=== PATIENT | female | born 1950 | race Caucasian/White ===

== ENCOUNTER 2019-02-24 12:08 | Emergency (ER) | payer SELFPAY ==
[~2019-02-24] VITALS: Ht 160 cm; Wt 86.0 kg
[2019-02-24] MEDS ORDERED: KETOROLAC 30MG/ML VIAL IV STA (12:36)
[2019-02-24] MEDS ORDERED: SODIUM CHLORIDE 0.9% 1,000 ML IV ONE (12:36)
[2019-02-24] MEDS ORDERED: MORPHINE SULFATE 4 MG/ML CPJ (NOT FOR IM USE) IV STA (12:36)
[2019-02-24] MEDS ORDERED: ONDANSETRON HCL 4MG/2ML INJ IV STA (12:36)
[2019-02-24 13:02] LABS: BASOPHILS % 1.4 % (0.0-2.0); EOSINOPHILS % 0.8 % (0.0-5.0); HEMATOCRIT. 40.9 % (36.0-48.0); HEMOGLOBIN. 13.6 g/dL (12.0-16.0); LYMPHOCYTES % 35.9 % (20.0-50.0); MEAN CORPUSCULAR HEMOGLOBIN 32.4 pg (28.0-32.0); MEAN CORPUSCULAR VOLUME 97.5 fL (81.0-99.0); MONOCYTES % 10.5 % (2.0-8.0); NEUTROPHILS % 51.4 % (40.0-76.0); PLATELET 212 x1000/uL (130-400); RED BLOOD CELL COUNT 4.19 mill/uL (4.2-5.4); RED CELL DISTRIBUTION WIDTH 13.4 % (11.6-14.6)
[2019-02-24 13:04] LABS: CHLORIDE 110 mEq/L (98-107)
[2019-02-24 13:07] LABS: INR 0.9; PARTIAL THROMBOPLASTIN TIME 24.5 sec (23.4-31.0); PROTHROMBIN TIME 9.5 sec (9.6-11.0)
[2019-02-24 13:08] LABS: ETHANOL BLOOD < 10 mg/dL
[2019-02-24] MEDS ORDERED: MORPHINE SULFATE 10 MG/ML CPJ IV ONE (13:30)
[2019-02-24] MEDS ORDERED: ONDANSETRON HCL 4MG/2ML INJ IV ONE (13:30)
[2019-02-24] MEDS ORDERED: ONDANSETRON HCL 4MG/2ML INJ IV NR (14:24)
[2019-02-24 14:45] VITALS: BP 132/50
== END 2019-02-24 15:04 | disposition home or self-care (01) ==
LOC: ER 12:08 → CANBEDREQ 15:42
DX: K62.89 Other specified diseases of anus and rectum (principal)
CPT/HCPCS: 36415; 71045; 74176; 80053; 80320; 83690; 83880; 84484; 85025; 85610; 85730; 93005; 96374; 96375; 96376; 99284; J1885; J2270; J2405; J7030; G0480

== ENCOUNTER 2021-11-10 00:26 | Inpatient (IN) | payer MEDICAID ==
[~2021-11-10] VITALS: Ht 157.5 cm; Wt 85.3 kg
[2021-11-10] MEDS ORDERED: MORPHINE SULFATE 4 MG/ML CPJ (NOT FOR IM USE) IV ONE (01:15)
[2021-11-10] MEDS ORDERED: ONDANSETRON HCL 4MG/2ML INJ IV ONE (01:30)
[2021-11-10 01:33] LABS: BASOPHILS % 2.3 % (0.0-2.0); EOSINOPHILS % 2.1 % (0.0-5.0); HEMATOCRIT. 36.1 % (36.0-48.0); HEMOGLOBIN. 11.9 g/dL (12.0-16.0); LYMPHOCYTES % 42.5 % (20.0-50.0); MEAN CORPUSCULAR HEMOGLOBIN 31.4 pg (28.0-32.0); MEAN PLATELET VOLUME 8.6 fl (7.4-10.4); MONOCYTES % 9.6 % (2.0-8.0); NEUTROPHILS % 43.5 % (40.0-76.0); PLATELET 214 x1000/uL (130-400); RED CELL DISTRIBUTION WIDTH 13.7 % (11.6-14.6)
[2021-11-10 01:40] LABS: CHLORIDE 109 mEq/L (98-107)
[2021-11-10] MEDS ORDERED: VISCOUS LIDOCAINE 2% 15 ML UDC PO STA (02:38)
[2021-11-10] MEDS ORDERED: MAGNESIUM/ALUMINUM HYDROXIDE/SIMETHICONE 30ML UDC PO STA (02:38)
[2021-11-10] MEDS ORDERED: ACETAMINOPHEN 325MG TABLET PO ONE (02:45)
[2021-11-10] MEDS ORDERED: IOHEXOL-350 100 ML BOTTLE ONE (05:19)
[2021-11-10] MEDS ORDERED: DOCUSATE SODIUM 100MG CAPSULE PO PRN (08:15)
[2021-11-10] MEDS ORDERED: GUAIFENESIN 200MG/10ML SUGAR FREE UDC PO PRN (08:15)
[2021-11-10] MEDS ORDERED: MAGNESIUM/ALUMINUM HYDROXIDE/SIMETHICONE 30ML UDC PO PRN (08:15)
[2021-11-10] MEDS ORDERED: NALOXONE HCL 0.4MG/ML VIAL IV PRN (08:30)
[2021-11-10] MEDS: ONDANSETRON HCL 4MG/2ML INJ IV PRN ×2 (08:31→13:19)
[2021-11-10] MEDS: HYDROCODONE/ACETAMINOPHEN 5/325MG TABLET PO PRN ×2 (08:32→13:19)
[2021-11-10] MEDS: ASPIRIN 81MG EC TABLET PO SCH (08:34)
[2021-11-10 10:15] VITALS: BP 121/53
[2021-11-10 12:00] VITALS: BP 115/58
[2021-11-10] MEDS ORDERED: PNEUMOCOCCAL 23-VAL P-SAC VAC 0.5 ML IM ONE (13:00)
[2021-11-10] MEDS: ENOXAPARIN 30MG/0.3ML SYR SUBCUT SCH ×2 (13:19→20:57)
[2021-11-10] MEDS ORDERED: REGADENOSON 0.4 MG/5 ML IV NR (15:00)
[2021-11-10 16:00] VITALS: BP 130/48
[2021-11-10] MEDS: ACETAMINOPHEN 325MG TABLET PO PRN (18:07)
[2021-11-10 20:00] VITALS: BP 107/48
[2021-11-10] MEDS: ATORVASTATIN CALCIUM 40MG TABLET PO SCH (20:57)
[2021-11-10] MEDS: NAPROXEN 250MG TABLET PO SCH (20:57)
[2021-11-10] MEDS ORDERED: POTASSIUM CHLORIDE 20MEQ TABLET SR PO NR (21:15)
[2021-11-11] VITALS: BP 94/41
[2021-11-11] MEDS: TRAMADOL 50MG TABLET PO PRN ×2 (00:35→14:51)
[2021-11-11 04:00] VITALS: BP 97/42
[2021-11-11] MEDS: ACETAMINOPHEN 325MG TABLET PO PRN (06:22)
[2021-11-11 07:31] LABS: BASOPHILS % 1.4 % (0.0-2.0); EOSINOPHILS % 1.9 % (0.0-5.0); HEMATOCRIT. 36.7 % (36.0-48.0); HEMOGLOBIN. 12.4 g/dL (12.0-16.0); LYMPHOCYTES % 41.6 % (20.0-50.0); MEAN CORPUSCULAR HEMOGLOBIN 32.5 pg (28.0-32.0); MEAN CORPUSCULAR VOLUME 96.3 fL (81.0-99.0); MEAN PLATELET VOLUME 9.7 fl (7.4-10.4); MONOCYTES % 12.7 % (2.0-8.0); NEUTROPHILS % 42.4 % (40.0-76.0); PLATELET 182 x1000/uL (130-400); RED BLOOD CELL COUNT 3.81 mill/uL (4.2-5.4); RED CELL DISTRIBUTION WIDTH 13.6 % (11.6-14.6)
[2021-11-11 07:43] LABS: CHLORIDE 108 mEq/L (98-107)
[2021-11-11 08:00] VITALS: BP 100/37
[2021-11-11] MEDS: ENOXAPARIN 30MG/0.3ML SYR SUBCUT SCH ×2 (08:25→20:48)
[2021-11-11] MEDS: NAPROXEN 250MG TABLET PO SCH ×2 (08:26→20:48)
[2021-11-11] MEDS: ASPIRIN 81MG EC TABLET PO SCH (08:26)
[2021-11-11] MEDS ORDERED: METOPROLOL TARTRATE 5MG/5ML VIAL IV PRN (10:00)
[2021-11-11] MEDS ORDERED: SODIUM CHLORIDE 0.45% 400 ML IV ONE (10:00)
[2021-11-11] MEDS ORDERED: SODIUM CHLORIDE 0.9% 1,000 ML IV SCH (10:15)
[2021-11-11] MEDS ORDERED: NITROGLYCERIN SPRAY/4.9GM CAN TL ONE (11:00)
[2021-11-11] MEDS ORDERED: NITROGLYCERIN SPRAY/4.9GM CAN TL NR (11:15)
[2021-11-11] MEDS: HYDROCODONE/ACETAMINOPHEN 5/325MG TABLET PO PRN ×2 (11:28→17:03)
[2021-11-11 12:00] VITALS: BP 105/46
[2021-11-11] MEDS ORDERED: IOHEXOL-350 100 ML BOTTLE ONE (12:07)
[2021-11-11] MEDS ORDERED: MECLIZINE 25MG TABLET PO PRN (15:00)
[2021-11-11 16:00] VITALS: BP 112/61
[2021-11-11 20:00] VITALS: BP 109/57
[2021-11-11] MEDS: ATORVASTATIN CALCIUM 40MG TABLET PO SCH (20:48)
[2021-11-12] VITALS: BP 113/50
[2021-11-12 04:00] VITALS: BP 93/50
[2021-11-12 08:00] VITALS: BP 114/48
[2021-11-12] MEDS: NAPROXEN 250MG TABLET PO SCH (08:45)
[2021-11-12] MEDS: ENOXAPARIN 30MG/0.3ML SYR SUBCUT SCH (08:45)
[2021-11-12] MEDS: ASPIRIN 81MG EC TABLET PO SCH (08:45)
[2021-11-12 10:55] VITALS: BP 114/48
[2021-11-12 11:31] LABS: CHLORIDE 109 mEq/L (98-107)
[2021-11-12 12:50] LABS: HEMATOCRIT 38.9 % (36.0-48.0); HEMOGLOBIN 12.9 g/dL (12.0-16.0); MEAN CORPUSCULAR HEMOGLOBIN 32.1 pg (28.0-32.0); MEAN CORPUSCULAR VOLUME 96.7 fL (81.0-99.0); PLATELET 208 x1000/uL (130-400); RED BLOOD CELL COUNT 4.02 mill/uL (4.2-5.4); RED CELL DISTRIBUTION WIDTH 13.3 % (11.6-14.6)
== END 2021-11-12 11:35 | disposition home or self-care (01) | DRG 203 ==
LOC: ER 00:26 → 8WST 03:30 → ENRESERV 08:36
PROVIDERS: ADMIT Hospitalist; ATTEND Hospitalist
DX: M94.0 Chondrocostal junction syndrome [Tietze] (principal); K76.0 Fatty (change of) liver, not elsewhere classified; I95.9 Hypotension, unspecified; D72.819 Decreased white blood cell count, unspecified; R91.1 Solitary pulmonary nodule; R00.1 Bradycardia, unspecified; E87.6 Hypokalemia; E78.5 Hyperlipidemia, unspecified; I45.10 Unspecified right bundle-branch block; Z20.822 Contact with and (suspected) exposure to COVID-19; M79.89 Other specified soft tissue disorders; Z79.82 Long term (current) use of aspirin
CPT/HCPCS: 36415; 71045; 71275; 74174; 75571; 80048; 80053; 80061; 83605; 83880; 84484; 85025; 85027; 87426; 93005; 93306; 97161; 97162; 99285; J1650; J2270; J2405; J7030; J8597; Q9967